=== PATIENT | female | born 1990 | race Two or more races ===

== ENCOUNTER 2023-07-23 12:22 | Emergency (ER) | payer MEDICAID ==
[~2023-07-23] VITALS: Ht 162.6 cm; Wt 102.0 kg
[2023-07-23 13:17] LABS: Urine Bacteria FEW /hpf (None Seen); Urine Blood 3+ /uL (Negative); Urine Clarity HAZY (Clear); Urine Color Yellow (Yellow); Urine Protein, UAD 2+ (Negative); Urine Specific Gravity 1.017 (1.001-1.035); Urine Urobilinogen Normal (Negative); Urine WBC 338 /hpf (0 - 5); Urine pH 6.5 (5.0-8.0)
[2023-07-23 15:39] VITALS: BP 139/99; PULSE 70; RESP 18; TEMP 98.6; O2SAT 96
[2023-07-23] MEDS ORDERED: KETOROLAC TROMETH 30 MG/ML 1ML VIAL IM ONE (15:45)
[2023-07-23] MEDS ORDERED: BACDST PO (17:03)
== END 2023-07-23 17:15 | disposition home or self-care (01) ==
LOC: ER 12:22
DX: N12 Tubulo-interstitial nephritis, not specified as acute or chronic (principal)
CPT/HCPCS: 81001; 81025; 96372; 99283; J1885